=== PATIENT | male | born 1980 | race Caucasian/White ===

== ENCOUNTER 2022-01-12 09:34 | Emergency (ER) | payer OTHER, SELFPAY ==
[2022-01-12 10:06] VITALS: BP 153/81; PULSE 85; RESP 18; TEMP 36.6; O2SAT 100
--- NOTE | 2022-01-12 11:53 | ED.GENADULT ---
HPI - General Adult General Chief complaint: Unspecified Stated complaint: right rib pain Time Seen by Provider: 01/12/22 11:10 Related Data Allergies Allergy/AdvReac Type Severity Reaction Status Date / Time No Known Allergies Allergy Unverified 08/16/14 12:09 Course Vital Signs Vital signs: Vital Signs Temperature 36.6 C 01/12/22 10:06 Pulse Rate 85 01/12/22 10:06 Respiratory Rate 18 01/12/22 10:06 Blood Pressure 153/81 H 01/12/22 10:06 Pulse Oximetry 100 01/12/22 10:06 Temperature 36.6 C 01/12/22 10:06 Pulse Rate 85 01/12/22 10:06 Respiratory Rate 18 01/12/22 10:06 Blood Pressure 153/81 H 01/12/22 10:06 Pulse Oximetry 100 01/12/22 10:06 Medical Decision Making Vital Signs Vital Signs: Vital Signs Temperature 36.6 C 01/12/22 10:06 Pulse Rate 85 01/12/22 10:06 Respiratory Rate 18 01/12/22 10:06 Blood Pressure 153/81 H 01/12/22 10:06 Pulse Oximetry 100 01/12/22 10:06 Temperature 36.6 C 01/12/22 10:06 Pulse Rate 85 01/12/22 10:06 Respiratory Rate 18 01/12/22 10:06 Blood Pressure 153/81 H 01/12/22 10:06 Pulse Oximetry 100 01/12/22 10:06
--- NOTE | 2022-01-12 11:56 | ED.FALL ---
HPI - Fall General Chief Complaint: Unspecified Stated Complaint: right rib pain Time Seen by Provider: 01/12/22 11:10 Source: patient Mode of arrival: ambulatory Limitations: no limitations History of Present Illness HPI Narrative: 41 y/o male presents with right sided rib pain. He was diving for a softball about 2 weeks ago and thinks he may have injured himself then. He says that it really didn't hurt much but on Tuesday, after he was lifting some heavy furniture, he started having a lot more pain. It is in his right ribs, under his right armpit. It is tender to touch. He went to [facility] urgent care yesterday and they did an xray. They did not see any fracture. They did note a perihilar nodule, incidentally, that he is supposed to follow up with primary care to get additional imaging done for this. He has not taken anything for the pain. He already has follow up appt scheduled with PCP in 10 days to further evaluate the lung nodule. Related Data Allergies Allergy/AdvReac Type Severity Reaction Status Date / Time No Known Allergies Allergy Unverified 08/16/14 12:09 Review of Systems Constitutional: Constitutional: Denies chills, Denies fatigue and Denies fever(s) ENT: Denies sore throat Cardiovascular: Cardiovascular: Denies chest pain, Denies rapid heart rate and Denies radiating jaw, neck or arm pain Respiratory: Respiratory: Denies chest congestion, Denies cough, Denies dyspnea and Denies wheezing Gastrointestinal: Gastrointestinal: Denies constipation, Denies diarrhea and Denies vomiting Genitourinary: Genitourinary: Reports no additional male genitourinary complaints Musculoskeletal: Musculoskeletal: Reports as per HPI, Denies back pain and Denies myalgias Integumentary/Breasts: Skin/Breast: Denies rash Neurologic: Reports system reviewed and no additional complaints, except as documented Psychiatric: Psychiatric: Reports no additional psychiatric complaints Endocrine: Endocrine: Reports no additional endocrine complaints Hematologic/Lymphatic: Hematologic/Lymphatic: Reports no additional hematologic/lymphatic complaints Exam Const: General: no acute distress Orientation/consciousness: patient oriented x3 HENMT: Head: normal to inspection Neck: Neck: normal visual inspection Chest: Chest palpation & inspection: normal inspection of the chest and tenderness (right lateral rib tenderness with palpation, no deformity) Resp: Effort & Inspection: normal respiratory effort Auscultation: clear to auscultation bilaterally Cardio: Rate: regular rate Rhythm: regular rhythm GI: GI Palp: Yes Soft to palpation, No Tenderness to palpation present (GI) and No Guarding due to palpation present (GI) : Testes: Testes normal Skin: General skin exam: normal color Rashes: rash noted Neuro: General: patient oriented x3 and moves all extremities Extrem: General: normal to inspection Psych: Mental Status: mental status grossly normal Affect: normal affect Course Vital Signs Vital signs: Vital Signs Temperature 36.6 C 01/12/22 10:06 Pulse Rate 85 01/12/22 10:06 Respiratory Rate 18 01/12/22 10:06 Blood Pressure 153/81 H 01/12/22 10:06 Pulse Oximetry 100 01/12/22 10:06 Temperature 36.6 C 01/12/22 10:06 Pulse Rate 85 01/12/22 10:06 Respiratory Rate 18 01/12/22 10:06 Blood Pressure 153/81 H 01/12/22 10:06 Pulse Oximetry 100 01/12/22 10:06 MDM - Fall Differential Diagnosis Differential diagnosis: Likely other (rib contusion, constochondritis ) Discharge Plan Discharge Clinical Impression: Acute chest wall pain, Acute costochondritis Patient Disposition: Home, Self-Care Condition: Stable Instructions: Antibiotic Form, Costochondritis (ED) Prescriptions: New naproxen [Naprosyn] 500 mg tablet 500 mg PO BID PRN (Reason: pain) Qty: 30 RF: 0 cyclobenzaprine 10 mg tablet 10 mg PO TID PRN (Reason: muscle spasm) Qty: 20 RF: 0 Follow-up/Referrals:
[2022-01-12 12:26] VITALS: BP 128/70; PULSE 80; RESP 16; TEMP 36.4; O2SAT 100
== END 2022-01-12 12:28 | disposition home or self-care (01) ==
PROVIDERS: Emergency Provider Nurse Practitioner Family
DX: M94.0 Chondrocostal junction syndrome [Tietze] (principal)
CPT/HCPCS: 99283

== ENCOUNTER 2025-01-16 10:34 | Outpatient (CLI) | payer OTHER, SELFPAY ==
--- NOTE | ~2025-01-16 | XR_ITS ---
Right Knee Technique: AP, lateral, and oblique views were obtained. Clinical History: Pain Findings: No fracture or dislocation is seen. Osseous alignment is anatomic. Joint spaces are preserv ed without degenerative or erosive change. Soft tissues are unremarkable. No joint effusion is seen. Impression: Unremarkable right knee radiographs. Reviewed, dictated and finalized at location . Impression: Unremarkable right knee radiographs.
== END 2025-01-16 10:35 | disposition home or self-care (01) ==
LOC: GOSHIMG 10:35
PROVIDERS: PCP Chiropractor; Visit Provider Chiropractor
DX: M25.561 Pain in right knee (principal)
CPT/HCPCS: 73564